=== PATIENT | male | born 1985 | race Hispanic/Latino ===

== ENCOUNTER 2019-08-22 09:28 | Emergency (ER) | payer SELFPAY ==
[2019-08-22] MEDS ORDERED: Morphine 4 MG/ML VIAL ONE (11:03)
[2019-08-22] MEDS ORDERED: predniSONE 20 MG TAB ONE (11:04)
[2019-08-22] MEDS ORDERED: Morphine 2 MG/ML SYRINGE ONE (11:04)
== END 2019-08-22 11:07 | disposition home or self-care (01) ==
LOC: BURERS 09:28
DX: S39.012A Strain of muscle, fascia and tendon of lower back, initial encounter (principal); X50.9XXA Other and unspecified overexertion or strenuous movements or postures, initial encounter
CPT/HCPCS: 96372; 99283; J2270; J7512